=== PATIENT | female | born 1935 | race Asian ===

== ENCOUNTER → 2016-11-30 | Outpatient (CLI) | payer MEDICARE ==
[~2016-11-30] MED LIST: ATEN100T PO; ENOX40SY4 SQ; FLUC200T4 PO; FOLI-17 PO; HYDR25TA6 PO; METH2.5T PO; Magnesium Oxide PO; Nystatin PO; POTA500T PO; UNK MEDS; maalox/diphenh/lido/sucralfate PO
== END | disposition home or self-care (01) ==
LOC: CFH 13:09
PROVIDERS: ATTEND Licensed Practical Nurse
DX: N60.01 Solitary cyst of right breast (principal); R59.0 Localized enlarged lymph nodes
CPT/HCPCS: 76641; G0206

== ENCOUNTER → 2017-02-23 | Outpatient (CLI) | payer MEDICARE | LOC: RAD 12:35 | PROVIDERS: ATTEND Nurse Practitioner Primary Care | DX: Z02.9 Encounter for administrative examinations, unspecified (principal) ==

== ENCOUNTER 2017-02-27 12:07 | Inpatient (IN) | payer MEDICARE ==
[~2017-02-27] VITALS: Ht 149.9 cm; Wt 33.6 kg
[2017-02-27] MEDS ORDERED: ONDANSETRON 2MG/ML, 2ML IVPush ONE (13:00)
[2017-02-27] MEDS ORDERED: SODIUM CHLORIDE 0.9% 1,000ML IVBOLUS ONE (13:00)
[2017-02-27] MEDS ORDERED: ONDANSETRON 2MG/ML, 2ML ONE (14:00)
[2017-02-27 14:31] LABS: BLOOD UREA NITROGEN 38 mg/dL (7-18)
[2017-02-27 14:58] LABS: HEMATOCRIT 24.6 % (34.6-47.8); HEMOGLOBIN 8.3 g/dL (11.7-16.4); WHITE BLOOD COUNT 7.9 x10^3/uL (3.4-10)
[2017-02-27 14:59] LABS: DIFF TOTAL CELLS COUNTED 100 CELL DIFF
[2017-02-27] MEDS ORDERED: POTASSIUM CHLORIDE 40 MEQ in SODIUM CHLORIDE 0.9% 500 ML IV ONE ×2 (15:00→17:30)
[2017-02-27] MEDS ORDERED: OMNIPAQUE 350 MG/ML, 50 ML BOTTLE ONE (15:31)
[2017-02-27 15:35] LABS: VERIFY COUNTS? YES
[2017-02-27 15:38] LABS: POLYCHROMASIA 1+
[2017-02-27 15:39] LABS: SCHISTOCYTES 1+
[2017-02-27 15:40] LABS: OVALOCYTES 1+
[2017-02-27 15:46] LABS: LARGE PLATELETS 1+
[2017-02-27] MEDS ORDERED: maalox/diphenh/lido/sucralfate 5 ML PO PRN (16:00)
[2017-02-27] MEDS ORDERED: MORPHINE SULFATE 4 MG/ML, 1ML IVPush PRN (16:00)
[2017-02-27] MEDS ORDERED: morphine SULFATE 10 MG/ML, 1ML ONE (16:27)
[2017-02-27] MEDS ORDERED: SODIUM CHLORIDE 0.9% 1,000 ML IV SCH (17:01)
[2017-02-27] MEDS ORDERED: ONDANSETRON 2MG/ML, 2ML IVPush PRN (17:30)
[2017-02-27] MEDS ORDERED: hydrALAzine 20 MG/ML, 1ML IVPush PRN (17:30)
[2017-02-27 20:00] VITALS: BP 171/79
[2017-02-27] MEDS: NYSTATIN 500,000 UNITS/5 ML UDC PO SCH ×2 (21:00→23:02)
[2017-02-27] MEDS: DEXTROSE 5% 1,000 ML IV SCH (22:59)
[2017-02-27] MEDS: FLUCONAZOLE 200 MG/100 ML 100 ML IV SCH (23:00)
[2017-02-27] MEDS: PANTOPRAZOLE 40 MG IV IVPush SCH (23:02)
[2017-02-28] VITALS (9 sets, daily range): BP systolic 137–166; BP diastolic 61–81
[2017-02-28 05:48] LABS: HEMOGLOBIN 7.2 g/dL (11.7-16.4); WHITE BLOOD COUNT 10.2 x10^3/uL (3.4-10)
[2017-02-28 06:07] LABS: BLOOD UREA NITROGEN 22 mg/dL (7-18)
[2017-02-28 06:08] LABS: ASPARTATE AMINO TRANSFERASE 16 U/L (15-37); TOTAL IRON BINDING CAPACITY 92 mcg/dL (250-450)
[2017-02-28 06:12] LABS: DIFF TOTAL CELLS COUNTED 100 CELL DIFF
[2017-02-28 06:18] LABS: VERIFY COUNTS? YES
[2017-02-28 06:19] LABS: ANISOCYTOSIS 1+
[2017-02-28 06:20] LABS: ECHINOCYTES 1+; POLYCHROMASIA 1+; SCHISTOCYTES 1+; SPHEROCYTES 1+
[2017-02-28 06:22] LABS: GIANT PLATELETS 1+; LARGE PLATELETS 1+
[2017-02-28 06:28] LABS: OVALOCYTES 1+
[2017-02-28] MEDS: PANTOPRAZOLE 40 MG IV IVPush SCH ×2 (09:09→21:01)
[2017-02-28] MEDS: NYSTATIN 500,000 UNITS/5 ML UDC PO SCH ×4 (09:09→21:01)
[2017-02-28] MEDS ORDERED: POTASSIUM CHLORIDE IV SCH (11:30)
[2017-02-28] MEDS ORDERED: DEXTROSE 5% IV SCH (11:30)
[2017-02-28] MEDS ORDERED: POTASSIUM PHOSPHATE IV SCH (11:30)
[2017-02-28] MEDS: DEXTROSE 5% 1,000 ML IV SCH (11:41)
[2017-02-28] MEDS: morphine SULFATE 10 MG/ML, 1ML IVPush PRN (11:52)
[2017-02-28] MEDS: FLUCONAZOLE 200 MG/100 ML 100 ML IV SCH (16:15)
[2017-03-01] MEDS: DEXTROSE 5% 1,000 ML IV SCH ×3 (00:06→21:00)
[2017-03-01 02:59] VITALS: BP 142/67
[2017-03-01 06:03] LABS: HEMATOCRIT 34.4 % (34.6-47.8); HEMOGLOBIN 11.7 g/dL (11.7-16.4)
[2017-03-01 06:13] LABS: ASPARTATE AMINO TRANSFERASE 20 U/L (15-37); BLOOD UREA NITROGEN 9 mg/dL (7-18)
[2017-03-01] MEDS: NYSTATIN 500,000 UNITS/5 ML UDC PO SCH ×4 (06:18→21:39)
[2017-03-01 06:27] LABS: DIFF TOTAL CELLS COUNTED 100 CELL DIFF
[2017-03-01 06:32] LABS: VERIFY COUNTS? YES
[2017-03-01 06:33] LABS: ANISOCYTOSIS 1+; OVALOCYTES 1+; SCHISTOCYTES 1+
[2017-03-01 06:34] LABS: POLYCHROMASIA 1+; SPHEROCYTES 1+
[2017-03-01 06:35] LABS: LARGE PLATELETS 1+
[2017-03-01 06:38] LABS: FERRITIN 4335.4 ng/mL (8-252)
[2017-03-01 06:58] VITALS: BP 137/70
[2017-03-01] MEDS: PANTOPRAZOLE 40 MG IV IVPush SCH ×2 (09:56→21:39)
[2017-03-01 15:04] VITALS: BP 144/74
[2017-03-01] MEDS ORDERED: LIDOCAINE GEL 2%, 5ML ONE (17:38)
[2017-03-01] MEDS ORDERED: BENZOCAINE 20% SPRAY 0.5ML ONE (17:38)
[2017-03-01] MEDS ORDERED: OMNIPAQUE 350 MG/ML, 50 ML BOTTLE ONE (19:22)
[2017-03-01 20:00] VITALS: BP 145/69
[2017-03-01] MEDS: CEFTRIAXONE PMX 1GM/50ML 50 ML IV SCH (21:38)
[2017-03-01] MEDS: FLUCONAZOLE 200 MG/100 ML 100 ML IV SCH (21:38)
[2017-03-02 02:49] VITALS: BP 100/55
[2017-03-02 03:19] VITALS: BP 148/69
[2017-03-02] MEDS: NYSTATIN 500,000 UNITS/5 ML UDC PO SCH ×4 (06:28→22:23)
[2017-03-02 07:34] VITALS: BP 134/71
[2017-03-02] MEDS: PANTOPRAZOLE 40 MG IV IVPush SCH ×2 (08:40→22:23)
[2017-03-02] MEDS: DEXTROSE 5% 1,000 ML IV SCH ×2 (08:42→16:56)
[2017-03-02] MEDS ORDERED: ACETAMINOPHEN 650 MG SUPP PR PRN (11:30)
[2017-03-02] MEDS: morphine SULFATE 10 MG/ML, 1ML IVPush PRN ×2 (12:08→22:23)
[2017-03-02 13:21] VITALS: BP 137/70
[2017-03-02 18:32] VITALS: BP 156/77
[2017-03-02] MEDS: FLUCONAZOLE 200 MG/100 ML 100 ML IV SCH (22:23)
[2017-03-02] MEDS: CEFTRIAXONE PMX 1GM/50ML 50 ML IV SCH (22:23)
[2017-03-03 01:35] VITALS: BP 142/76
[2017-03-03] MEDS: DEXTROSE 5% 1,000 ML IV SCH ×3 (04:19→21:00)
[2017-03-03] MEDS: NYSTATIN 500,000 UNITS/5 ML UDC PO SCH ×4 (06:26→23:51)
[2017-03-03] MEDS: PANTOPRAZOLE 40 MG IV IVPush SCH ×2 (08:05→23:51)
[2017-03-03 10:45] VITALS: BP 152/78
[2017-03-03 15:15] VITALS: BP 136/78
[2017-03-03] MEDS ORDERED: MAGNESIUM SULFATE PMX 2GM/50ML 50 ML IV ONE (16:00)
[2017-03-03] MEDS: POTASSIUM CHLORIDE 40 MEQ in SODIUM CHLORIDE 0.9% 500 ML IV SCH ×2 (17:05→22:00)
[2017-03-03] MEDS: POTASSIUM PHOSPHATE 44 MEQ in SODIUM CHLORIDE 0.9% 500 ML IV SCH (18:27)
[2017-03-03] MEDS: CEFTRIAXONE PMX 1GM/50ML 50 ML IV SCH (22:06)
[2017-03-03 22:34] VITALS: BP 135/88
[2017-03-03] MEDS: FLUCONAZOLE 200 MG/100 ML 100 ML IV SCH (23:52)
[2017-03-04 01:26] VITALS: BP 121/64
[2017-03-04 05:39] LABS: HEMATOCRIT 33.3 % (34.6-47.8); HEMOGLOBIN 11.4 g/dL (11.7-16.4)
[2017-03-04] MEDS: POTASSIUM PHOSPHATE 44 MEQ in SODIUM CHLORIDE 0.9% 500 ML IV SCH (05:42)
[2017-03-04 05:52] LABS: BLOOD UREA NITROGEN 5 mg/dL (7-18)
[2017-03-04] MEDS: NYSTATIN 500,000 UNITS/5 ML UDC PO SCH ×4 (06:05→21:05)
[2017-03-04] MEDS: DEXTROSE 5% 1,000 ML IV SCH ×2 (06:12→15:53)
[2017-03-04 06:21] LABS: DIFF TOTAL CELLS COUNTED 100 CELL DIFF
[2017-03-04 06:36] VITALS: BP 143/63
[2017-03-04 06:38] LABS: ANISOCYTOSIS 1+; LARGE PLATELETS 1+; OVALOCYTES 1+; POLYCHROMASIA 1+; SCHISTOCYTES 1+; VERIFY COUNTS? YES
[2017-03-04] MEDS: PANTOPRAZOLE 40 MG IV IVPush SCH ×2 (08:57→21:05)
[2017-03-04 12:06] VITALS: BP 134/69
[2017-03-04 20:00] VITALS: BP 145/75
[2017-03-04] MEDS: FLUCONAZOLE 200 MG/100 ML 100 ML IV SCH (23:48)
[2017-03-05 02:00] VITALS: BP 136/76
[2017-03-05] MEDS: NYSTATIN 500,000 UNITS/5 ML UDC PO SCH ×4 (05:18→20:17)
[2017-03-05] MEDS: DEXTROSE 5% 1,000 ML IV SCH ×2 (05:19→15:00)
[2017-03-05 05:54] LABS: HEMATOCRIT 36.2 % (34.6-47.8); HEMOGLOBIN 12.1 g/dL (11.7-16.4); WHITE BLOOD COUNT 21.6 x10^3/uL (3.4-10)
[2017-03-05 06:07] LABS: ASPARTATE AMINO TRANSFERASE 15 U/L (15-37); BLOOD UREA NITROGEN 4 mg/dL (7-18)
[2017-03-05 06:36] VITALS: BP 125/70
[2017-03-05 06:43] LABS: DIFF TOTAL CELLS COUNTED 100 CELL DIFF
[2017-03-05 06:57] LABS: ANISOCYTOSIS 1+; VERIFY COUNTS? YES
[2017-03-05 06:58] LABS: OVALOCYTES 1+; POLYCHROMASIA 1+
[2017-03-05 06:59] LABS: SCHISTOCYTES 1+
[2017-03-05 07:00] LABS: LARGE PLATELETS 1+
[2017-03-05] MEDS: PANTOPRAZOLE 40 MG IV IVPush SCH ×2 (09:03→20:17)
[2017-03-05 12:26] VITALS: BP 142/75
[2017-03-05 20:11] VITALS: BP 112/74
[2017-03-05] MEDS: FLUCONAZOLE 200 MG/100 ML 100 ML IV SCH (23:58)
[2017-03-06 02:51] VITALS: BP 128/70
[2017-03-06] MEDS: DEXTROSE 5% 1,000 ML IV SCH ×3 (03:00→23:39)
[2017-03-06 06:03] LABS: BLOOD UREA NITROGEN 6 mg/dL (7-18)
[2017-03-06 06:07] LABS: ASPARTATE AMINO TRANSFERASE 16 U/L (15-37)
[2017-03-06] MEDS: NYSTATIN 500,000 UNITS/5 ML UDC PO SCH ×4 (06:09→21:21)
[2017-03-06 06:23] LABS: HEMATOCRIT 37.7 % (34.6-47.8); HEMOGLOBIN 12.5 g/dL (11.7-16.4); WHITE BLOOD COUNT 23.4 x10^3/uL (3.4-10)
[2017-03-06 06:41] LABS: DIFF TOTAL CELLS COUNTED 100 CELL DIFF
[2017-03-06 06:45] LABS: ANISOCYTOSIS 1+; OVALOCYTES 1+; POLYCHROMASIA 1+; SCHISTOCYTES 1+; VERIFY COUNTS? YES
[2017-03-06 06:50] VITALS: BP 122/67
[2017-03-06 06:51] LABS: LARGE PLATELETS 1+
[2017-03-06] MEDS: PANTOPRAZOLE 40 MG IV IVPush SCH ×2 (09:05→21:02)
[2017-03-06 14:10] VITALS: BP 122/69
[2017-03-06] MEDS ORDERED: INSULIN REGULAR 100 UNITS/ML, 3ML VIAL SQ-INSULIN ONE (14:30)
[2017-03-06] MEDS: ORAJEL 7GM TUBE MM PRN ×2 (17:31→23:06)
[2017-03-06 20:11] VITALS: BP 125/73
[2017-03-06] MEDS: FLUCONAZOLE 200 MG/100 ML 100 ML IV SCH (23:40)
[2017-03-07] MEDS: morphine SULFATE 10 MG/ML, 1ML IVPush PRN ×3 (00:03→11:26)
[2017-03-07 02:51] VITALS: BP 154/84
[2017-03-07] MEDS: NYSTATIN 500,000 UNITS/5 ML UDC PO SCH ×4 (06:11→21:32)
[2017-03-07 07:40] VITALS: BP 141/81
[2017-03-07] MEDS: SODIUM CHLORIDE 0.9% 1,000 ML IV SCH ×2 (08:30→18:15)
[2017-03-07] MEDS: PANTOPRAZOLE 40 MG IV IVPush SCH ×2 (08:30→21:32)
[2017-03-07] MEDS: ORAJEL 7GM TUBE MM PRN ×2 (08:30→23:30)
[2017-03-07 09:47] LABS: HEMATOCRIT 37.7 % (34.6-47.8); HEMOGLOBIN 12.6 g/dL (11.7-16.4); WHITE BLOOD COUNT 27.5 x10^3/uL (3.4-10)
[2017-03-07 09:56] LABS: BLOOD UREA NITROGEN 10 mg/dL (7-18)
[2017-03-07 09:59] LABS: ASPARTATE AMINO TRANSFERASE 19 U/L (15-37)
[2017-03-07 10:07] LABS: DIFF TOTAL CELLS COUNTED 100 CELL DIFF
[2017-03-07 10:08] LABS: ANISOCYTOSIS 1+; OVALOCYTES 1+; POLYCHROMASIA 1+; VERIFY COUNTS? YES
[2017-03-07 10:10] LABS: LARGE PLATELETS 1+
[2017-03-07 18:16] VITALS: BP 150/71
[2017-03-07] MEDS: FLUCONAZOLE 200 MG/100 ML 100 ML IV SCH (23:30)
[2017-03-08 00:27] LABS: PATH.CAST-FLAG NOT PRESENT; SPERM-FLAG NOT PRESENT; SRC-FLAG NOT PRESENT; XTAL-FLAG NOT PRESENT; YLC-FLAG NOT PRESENT
[2017-03-08] MEDS: SODIUM CHLORIDE 0.9% 1,000 ML IV SCH ×3 (00:30→17:28)
[2017-03-08 02:54] VITALS: BP 126/60
[2017-03-08] MEDS ORDERED: LEVOFLOXACIN/PMX 750MG/150ML 150 ML IV SCH (04:30)
[2017-03-08] MEDS: NYSTATIN 500,000 UNITS/5 ML UDC PO SCH ×4 (06:01→21:09)
[2017-03-08 06:07] LABS: BLOOD UREA NITROGEN 8 mg/dL (7-18)
[2017-03-08 06:10] LABS: HEMATOCRIT 32.3 % (34.6-47.8); HEMOGLOBIN 10.8 g/dL (11.7-16.4); WHITE BLOOD COUNT 22.5 x10^3/uL (3.4-10)
[2017-03-08 06:11] LABS: ASPARTATE AMINO TRANSFERASE 25 U/L (15-37)
[2017-03-08 06:30] LABS: DIFF TOTAL CELLS COUNTED 100 CELL DIFF
[2017-03-08 06:32] LABS: ANISOCYTOSIS 1+; OVALOCYTES 1+; POLYCHROMASIA 1+; VERIFY COUNTS? YES
[2017-03-08 06:33] LABS: LARGE PLATELETS 1+
[2017-03-08] MEDS: ORAJEL 7GM TUBE MM PRN ×3 (08:02→21:10)
[2017-03-08 09:03] VITALS: BP 135/74
[2017-03-08] MEDS: FLUCONAZOLE 400 MG/200 ML 200 ML IV SCH (09:39)
[2017-03-08] MEDS: PANTOPRAZOLE 40 MG IV IVPush SCH ×2 (09:39→21:09)
[2017-03-08 14:48] VITALS: BP 143/71
[2017-03-08] MEDS: HEPARIN 5,000 UNITS/ML, 1ML SQ SCH (17:30)
[2017-03-08 18:41] VITALS: BP 150/81
[2017-03-08] MEDS: ATORVASTATIN 20 MG TABLET PO SCH (21:00)
[2017-03-09] MEDS: HEPARIN 5,000 UNITS/ML, 1ML SQ SCH ×3 (00:39→21:44)
[2017-03-09 01:36] VITALS: BP 145/64
[2017-03-09] MEDS: SODIUM CHLORIDE 0.9% 1,000 ML IV SCH ×2 (04:18→08:30)
[2017-03-09] MEDS: LEVOFLOXACIN/PMX 500MG/100ML 100 ML IV SCH (05:13)
[2017-03-09] MEDS: NYSTATIN 500,000 UNITS/5 ML UDC PO SCH ×4 (05:13→21:43)
[2017-03-09] MEDS: ASPIRIN 81 MG TABLET EC PO SCH (05:13)
[2017-03-09 06:27] LABS: HEMATOCRIT 32.9 % (34.6-47.8); HEMOGLOBIN 11.2 g/dL (11.7-16.4); WHITE BLOOD COUNT 16.6 x10^3/uL (3.4-10)
[2017-03-09 06:45] LABS: ASPARTATE AMINO TRANSFERASE 33 U/L (15-37); BLOOD UREA NITROGEN 4 mg/dL (7-18)
[2017-03-09 07:01] LABS: DIFF TOTAL CELLS COUNTED 100 CELL DIFF
[2017-03-09 07:03] LABS: ANISOCYTOSIS 1+; OVALOCYTES 1+; POLYCHROMASIA 1+; VERIFY COUNTS? YES
[2017-03-09 07:04] LABS: LARGE PLATELETS 1+
[2017-03-09] MEDS ORDERED: MAGNESIUM SULFATE PMX 2GM/50ML 50 ML IV ONE (08:30)
[2017-03-09] MEDS: PANTOPRAZOLE 40 MG IV IVPush SCH ×2 (10:13→21:43)
[2017-03-09] MEDS: FLUCONAZOLE 400 MG/200 ML 200 ML IV SCH (10:14)
[2017-03-09 10:42] VITALS: BP 149/83
[2017-03-09 12:41] VITALS: BP 152/77
[2017-03-09 19:52] VITALS: BP 145/73
[2017-03-09] MEDS ORDERED: ACETAMINOPHEN 650 MG SUPP PR PRN (20:00)
[2017-03-09] MEDS: ATORVASTATIN 20 MG TABLET PO SCH (21:43)
[2017-03-10 02:00] VITALS: BP 153/80
[2017-03-10] MEDS: NYSTATIN 500,000 UNITS/5 ML UDC PO SCH ×4 (05:25→20:52)
[2017-03-10] MEDS: ASPIRIN 81 MG TABLET EC PO SCH (05:25)
[2017-03-10] MEDS: LEVOFLOXACIN/PMX 500MG/100ML 100 ML IV SCH (05:25)
[2017-03-10] MEDS: HEPARIN 5,000 UNITS/ML, 1ML SQ SCH ×3 (05:25→20:53)
[2017-03-10] MEDS: SODIUM CHLORIDE 0.9% 1,000 ML IV SCH (05:26)
[2017-03-10 05:30] LABS: BLOOD UREA NITROGEN 2 mg/dL (7-18)
[2017-03-10 06:08] LABS: HEMOGLOBIN 12.6 g/dL (11.7-16.4); WHITE BLOOD COUNT 22.8 x10^3/uL (3.4-10)
[2017-03-10 06:40] VITALS: BP 134/72
[2017-03-10 07:09] LABS: DIFF TOTAL CELLS COUNTED 100 CELL DIFF
[2017-03-10 07:11] LABS: VERIFY COUNTS? YES
[2017-03-10 07:12] LABS: ANISOCYTOSIS 1+; OVALOCYTES 1+; POLYCHROMASIA 1+
[2017-03-10 07:13] LABS: LARGE PLATELETS 1+
[2017-03-10] MEDS ORDERED: ALBUMIN HUMAN 25% 100 ML IV ONE (08:00)
[2017-03-10] MEDS ORDERED: MAGNESIUM SULFATE PMX 2GM/50ML 50 ML IV ONE (08:00)
[2017-03-10] MEDS: FLUCONAZOLE 200 MG TABLET PO SCH (09:16)
[2017-03-10] MEDS: PANTOPRAZOLE 40 MG IV IVPush SCH ×2 (09:16→20:53)
[2017-03-10] MEDS: SODIUM CHLORIDE 0.45% 1,000 ML IV SCH ×2 (10:00→20:53)
[2017-03-10] MEDS: ORAJEL 7GM TUBE MM PRN ×2 (10:00→17:37)
[2017-03-10 14:41] VITALS: BP 141/75
[2017-03-10] MEDS ORDERED: ACETAMINOPHEN 325 MG TABLET PO PRN (15:00)
[2017-03-10 18:59] VITALS: BP 136/75
[2017-03-10] MEDS ORDERED: hydrALAzine 20 MG/ML, 1ML IVPush PRN (20:00)
[2017-03-10] MEDS ORDERED: ONDANSETRON 2MG/ML, 2ML IVPush PRN (20:00)
[2017-03-10] MEDS: ATORVASTATIN 20 MG TABLET PO SCH (20:52)
[2017-03-11 02:32] VITALS: BP 137/69
[2017-03-11] MEDS: SODIUM CHLORIDE 0.45% 1,000 ML IV SCH ×2 (04:53→22:11)
[2017-03-11] MEDS: ASPIRIN 81 MG TABLET EC PO SCH (04:54)
[2017-03-11] MEDS: NYSTATIN 500,000 UNITS/5 ML UDC PO SCH ×4 (04:54→21:15)
[2017-03-11] MEDS: HEPARIN 5,000 UNITS/ML, 1ML SQ SCH ×3 (04:54→21:15)
[2017-03-11] MEDS: LEVOFLOXACIN/PMX 500MG/100ML 100 ML IV SCH (04:54)
[2017-03-11] MEDS: ORAJEL 7GM TUBE MM PRN ×2 (05:09→22:14)
[2017-03-11] MEDS ORDERED: DIPHENHYDRAMINE 50 MG/ML, 1ML IVPush ONE (07:30)
[2017-03-11] MEDS ORDERED: methylPREDNISolone SOD SUCC 125 MG/2 ML IVPush SCH ×2 (07:30→09:30)
[2017-03-11 08:04] LABS: ASPARTATE AMINO TRANSFERASE 17 U/L (15-37)
[2017-03-11 08:06] LABS: BLOOD UREA NITROGEN 2 mg/dL (7-18)
[2017-03-11 08:08] LABS: HEMATOCRIT 30.4 % (34.6-47.8); HEMOGLOBIN 10.3 g/dL (11.7-16.4); WHITE BLOOD COUNT 23.6 x10^3/uL (3.4-10)
[2017-03-11 08:11] LABS: DIFF TOTAL CELLS COUNTED 100 CELL DIFF
[2017-03-11 08:21] VITALS: BP 131/66
[2017-03-11 08:27] LABS: VERIFY COUNTS? YES
[2017-03-11 08:28] LABS: ANISOCYTOSIS 1+; OVALOCYTES 1+; POLYCHROMASIA 1+
[2017-03-11 08:29] LABS: LARGE PLATELETS 1+
[2017-03-11] MEDS ORDERED: SODIUM PHOSPHATE 4 MEQ/ML IV SCH (09:30)
[2017-03-11] MEDS ORDERED: POTASSIUM CHLORIDE 20 MEQ TAB.ER.PRT PO ONE ×2 (09:30→13:00)
[2017-03-11] MEDS ORDERED: SODIUM CHLORIDE 0.9% IV SCH (10:00)
[2017-03-11] MEDS ORDERED: SODIUM PHOSPHATE IV SCH (10:00)
[2017-03-11] MEDS: AMPICILLIN/SULBACTAM 3 GM in SODIUM CHLORIDE 0.9% 100 ML IV SCH ×3 (10:30→23:43)
[2017-03-11] MEDS: PANTOPROZOLE 40MG TABLET PO SCH ×2 (10:30→21:15)
[2017-03-11] MEDS: FLUCONAZOLE 200 MG TABLET PO SCH (10:30)
[2017-03-11 11:45] LABS: HIV 1&2 ANTIBODY SCREEN Nonreactive (Nonreactive); HIV-1 p24 ANTIGEN Nonreactive (Nonreactive)
[2017-03-11] MEDS: DOXYCYCLINE 100 MG in DEXTROSE 5% 250 ML IV SCH (12:55)
[2017-03-11 14:44] VITALS: BP 135/68
[2017-03-11 20:55] VITALS: BP 145/76
[2017-03-11] MEDS: ATORVASTATIN 20 MG TABLET PO SCH (21:15)
[2017-03-11 23:45] LABS: PATH.CAST-FLAG NOT PRESENT; SPERM-FLAG NOT PRESENT; SRC-FLAG NOT PRESENT; XTAL-FLAG NOT PRESENT; YLC-FLAG NOT PRESENT
[2017-03-12] MEDS: DOXYCYCLINE 100 MG in DEXTROSE 5% 250 ML IV SCH ×2 (01:06→13:23)
[2017-03-12 02:57] VITALS: BP 124/70
[2017-03-12 05:16] LABS: BLOOD UREA NITROGEN 2 mg/dL (7-18)
[2017-03-12] MEDS: AMPICILLIN/SULBACTAM 3 GM in SODIUM CHLORIDE 0.9% 100 ML IV SCH ×3 (05:23→17:29)
[2017-03-12] MEDS: HEPARIN 5,000 UNITS/ML, 1ML SQ SCH ×2 (05:23→13:23)
[2017-03-12] MEDS: NYSTATIN 500,000 UNITS/5 ML UDC PO SCH ×3 (05:23→16:34)
[2017-03-12] MEDS: ASPIRIN 81 MG TABLET EC PO SCH (05:23)
[2017-03-12 05:25] LABS: HEMATOCRIT 29.4 % (34.6-47.8); WHITE BLOOD COUNT 15.9 x10^3/uL (3.4-10)
[2017-03-12 05:50] LABS: DIFF TOTAL CELLS COUNTED 100 CELL DIFF
[2017-03-12 05:54] LABS: ANISOCYTOSIS 1+; OVALOCYTES 1+; POLYCHROMASIA 1+; VERIFY COUNTS? YES
[2017-03-12 05:55] LABS: LARGE PLATELETS 1+
[2017-03-12 06:30] VITALS: BP 117/55
[2017-03-12] MEDS ORDERED: POTASSIUM CHLORIDE 20 MEQ TAB.ER.PRT PO ONE ×2 (06:30→11:30)
[2017-03-12] MEDS: SODIUM CHLORIDE 0.45% 1,000 ML IV SCH (08:24)
[2017-03-12] MEDS: PANTOPROZOLE 40MG TABLET PO SCH (08:24)
[2017-03-12] MEDS: FLUCONAZOLE 200 MG TABLET PO SCH (08:24)
[2017-03-12] MEDS ORDERED: FLUC200T4 PO (08:33)
[2017-03-12] MEDS ORDERED: ATOR20TA9 PO (08:33)
[2017-03-12] MEDS ORDERED: AMOX1TAB64 PO (08:33)
[2017-03-12] MEDS ORDERED: ASPI-496 PO (08:33)
[2017-03-12] MEDS ORDERED: BENZ7GEL3 MM (08:33)
[2017-03-12] MEDS ORDERED: NYST1000 PO (08:33)
[2017-03-12] MEDS ORDERED: PANT40TA5 PO (08:33)
[2017-03-12] MEDS ORDERED: DOXY100C2 PO (08:33)
[2017-03-12 13:15] VITALS: BP 132/66
[2017-03-12 14:27] LABS: BLOOD UREA NITROGEN 3 mg/dL (7-18)
[2017-03-14 00:06] LABS: ABSOLUTE CD 4 HELPER 1775 /uL (359-1519); HEMATOCRIT 30.6 % (34.0-46.6); HEMATOLOGY COMMENTS Note: (.); HEMOGLOBIN 9.8 g/dL (11.1-15.9); MCH 29.6 pg (26.6-33.0); MCV 92 fL (79-97); METAMYELOCYTES 1 % (0 - 0); MONOCYTES 11 % (Not Estab.); NEUTROPHILS 69 % (Not Estab.); NEUTROPHILS (ABSOLUTE) 11.3 x10E3/uL (1.4-7.0); PLATELETS 735 x10E3/uL (150-379); RBC 3.31 x10E6/uL (3.77-5.28); RDW 18.6 % (12.3-15.4); WBC 16.4 x10E3/uL (3.4-10.8)
== END 2017-03-12 19:00 | DRG 177 ==
LOC: ED 15:46 → EDIP 16:00 → 4WST 20:06
PROVIDERS: ADMIT Hospitalist; ATTEND Internal Medicine
PROC: 30233N1 Transfusion of Nonautologous Red Blood Cells into Peripheral Vein, Percutaneous Approach (ICD-10-PCS; principal; 2017-02-28)
PROC: 0DH63UZ Insertion of Feeding Device into Stomach, Percutaneous Approach (ICD-10-PCS; 2017-03-01)
DX: J69.0 Pneumonitis due to inhalation of food and vomit (principal); E43 Unspecified severe protein-calorie malnutrition; B37.0 Candidal stomatitis; B37.81 Candidal esophagitis; E87.0 Hyperosmolality and hypernatremia; E83.39 Other disorders of phosphorus metabolism; E83.42 Hypomagnesemia; E86.0 Dehydration; I11.0 Hypertensive heart disease with heart failure; I50.30 Unspecified diastolic (congestive) heart failure; G45.9 Transient cerebral ischemic attack, unspecified; Z68.1 Body mass index [BMI] 19.9 or less, adult; R13.11 Dysphagia, oral phase; D50.0 Iron deficiency anemia secondary to blood loss (chronic); E87.6 Hypokalemia; D64.9 Anemia, unspecified; M06.9 Rheumatoid arthritis, unspecified; Z88.0 Allergy status to penicillin; K12.0 Recurrent oral aphthae; R47.02 Dysphasia; Z90.710 Acquired absence of both cervix and uterus
CPT/HCPCS: 36415; 70450; 70491; 70551; 71010; 71020; 74000; 74230; 74340; 80048; 80053; 80061; 81001; 82040; 82728; 82962; 83036; 83540; 83550; 83690; 83735; 84100; 84439; 84443; 85025; 86361; 86703; 86850; 86900; 86923; 87040; 87077; 87086; 87186; 87324; 87899; 93005; 93306; 93880; 96361; 96374; J0295; J0696; J1450; J1644; J1815; J1956; J2405; J3480; J7060; J7070; P9047; Q9967; C9113; G0435; J2270; J3475; J7030; J7040; P9016

== ENCOUNTER → 2017-02-27 | Outpatient (CLI) | payer MEDICARE | END | disposition home or self-care (01) | LOC: RAD 10:21 | PROVIDERS: ATTEND Nurse Practitioner Primary Care | DX: R13.10 Dysphagia, unspecified (principal) | CPT/HCPCS: 74230 ==